=== PATIENT | male | born 1990 | race Two or more races ===

== ENCOUNTER 2017-11-26 15:02 | Inpatient (IN) | payer MEDICAID ==
[~2017-11-26] VITALS: Ht 182.9 cm; Wt 63.1 kg
[~2017-11-26 15:02] MED LIST: OFLO5DRO OP; PHEN-873 PO
[2017-11-26 15:47] LABS: BASOPHILS % (AUTO) 0.1 % (0-1); EOSINOPHILS # (AUTO) 0.2 X10'3 (0-0.9); EOSINOPHILS % (AUTO) 1.8 % (0-6); HEMATOCRIT 44.5 % (42.0-52.0); HEMOGLOBIN 15.1 g/dl (14.0-17.9); LYMPHOCYTES # (AUTO) 1.8 X10'3 (1.1-4.8); LYMPHOCYTES % (AUTO) 15.4 % (21-51); MEAN CORPUSCULAR HEMOGLOBIN 30.6 PG (27.0-31.0); MEAN CORPUSCULAR HGB CONC 33.8 % (33.0-36.5); MEAN CORPUSCULAR VOLUME 90.6 FL (78-98); MONOCYTES # (AUTO) 1.1 X10'3 (0-0.9); MONOCYTES % (AUTO) 9.2 % (2-12); NEUTROPHILS # (AUTO) 8.6 X10'3 (1.8-7.7); NEUTROPHILS % (AUTO) 73.5 % (42-75); PLATELET COUNT 190 X10'3 (140-440); RED BLOOD COUNT 4.91 X10'6 (4.70-6.10); RED CELL DISTRIBUTION WIDTH 13.2 % (11.5-14.5); WHITE BLOOD COUNT 11.8 X10'3 (4.5-11.0)
[2017-11-26 15:55] LABS: PROTHROMBIN TIME 10.1 SECONDS (9.0-12.0)
[2017-11-26 16:00] LABS: ALANINE AMINOTRANSFERASE 141 U/L (12-78); ALBUMIN 4.1 G/DL (3.4-5.0); ALBUMIN/GLOBULIN RATIO 1.2 (1.1-1.5); ALKALINE PHOSPHATASE 65 IU/L (46-116); ANION GAP 7 (8-16); ASPARTATE AMINO TRANSFERASE 53 U/L (10-37); BILIRUBIN,TOTAL 0.8 MG/DL (0.1-1.0); BLOOD UREA NITROGEN 17 MG/DL (7-18); BUN/CREATININE RATIO 16.3 (5.4-32.0); CALCIUM 8.9 MG/DL (8.5-10.1); CHLORIDE 102 MMOL/L (99-107); CREATININE 1.04 MG/DL (0.60-1.10); GLUCOSE 93 MG/DL (70-104); SODIUM 139 MMOL/L (135-145); TOTAL CARBON DIOXIDE 29.6 MMOL/L (24-32); TOTAL PROTEIN 7.6 G/DL (6.4-8.2); eGFR 86 ML/MIN
[2017-11-26 16:21] LABS: CLARITY,URINE CLEAR (Clear); COLOR,URINE YELLOW (Yellow); GLUCOSE, URINE NEGATIVE (Neg); KETONES,URINE NEGATIVE (Neg); LEUKOCYTE ESTERASE ,URINE NEGATIVE (Neg); NITRITES, URINE NEGATIVE (Neg); OCCULT BLOOD,URINE NEGATIVE (Neg); PH,URINE 5.5 (4.8-8.0); PROTEIN,URINE NEGATIVE (Neg); UROBILINOGEN,URINE 0.2 E.U/dL (0.2-1.0)
[2017-11-26 16:25] LABS: UA COLLECTION TYPE CLN CATCH MIDSTREAM
[2017-11-26] MEDS ORDERED: morphine 4 MG/ML inj SYRINge IV ONE (16:25)
[2017-11-26] MEDS ORDERED: ondansetron/PF 4mg/2ml inj IV ONE (16:25)
[2017-11-26] MEDS ORDERED: normal saline 1000ML IV soln IVB ONE ×2 (16:25)
[2017-11-26] MEDS ORDERED: iohexol 300mg/ml 100ml inj. ONE (16:57)
[2017-11-26] MEDS ORDERED: NO HOME MEDS (18:09)
[2017-11-26] MEDS ORDERED: ondansetron/PF 4mg/2ml inj IV PRN (20:10)
[2017-11-26] MEDS: ciprofloxacin lact 400MG/200ML 200 ML IV SCH (20:39)
[2017-11-26] MEDS: normal saline 1000ml 1,000 ML IV SCH (20:40)
[2017-11-26] MEDS: morphine 4 MG/ML inj SYRINge IV PRN (21:14)
[2017-11-26 21:25] VITALS: BP 107/66
[2017-11-26] MEDS ORDERED: metroNIDAZOLE-Flagyl 500mg/NS 100 ML IV SCH (22:00)
[2017-11-27] VITALS (22 sets, daily range): BP systolic 92–123; BP diastolic 49–70
[2017-11-27 05:14] LABS: BASOPHILS % (AUTO) 0.3 % (0-1); EOSINOPHILS # (AUTO) 0.2 X10'3 (0-0.9); EOSINOPHILS % (AUTO) 1.8 % (0-6); HEMATOCRIT 38.8 % (42.0-52.0); HEMOGLOBIN 13.5 g/dl (14.0-17.9); LYMPHOCYTES # (AUTO) 1.8 X10'3 (1.1-4.8); MEAN CORPUSCULAR HGB CONC 34.8 % (33.0-36.5); MEAN PLATELET VOLUME 8.1 FL (7.4-10.4); MONOCYTES % (AUTO) 10.7 % (2-12); NEUTROPHILS # (AUTO) 6.3 X10'3 (1.8-7.7); NEUTROPHILS % (AUTO) 68.2 % (42-75); PLATELET COUNT 157 X10'3 (140-440); RED BLOOD COUNT 4.36 X10'6 (4.70-6.10); RED CELL DISTRIBUTION WIDTH 12.9 % (11.5-14.5); WHITE BLOOD COUNT 9.3 X10'3 (4.5-11.0)
[2017-11-27] MEDS: normal saline 1000ml 1,000 ML IV SCH ×3 (06:06→16:08)
[2017-11-27] MEDS: metroNIDAZOLE-Flagyl 500mg/NS 100 ML IV SCH ×3 (07:22→23:58)
[2017-11-27] MEDS: ciprofloxacin lact 400MG/200ML 200 ML IV SCH ×2 (09:24→21:19)
[2017-11-27] MEDS: morphine 4 MG/ML inj SYRINge IV PRN ×3 (09:25→22:34)
[2017-11-27] MEDS ORDERED: ringers solution, lacted 1,000 ML IV SCH (12:26)
[2017-11-27] MEDS ORDERED: ondansetron/PF 4mg/2ml inj IV PRN (12:30)
[2017-11-27] MEDS ORDERED: proCHLORperazine 10 MG/2 ml inj IV PRN (12:30)
[2017-11-27] MEDS ORDERED: morphine 4 MG/ML inj SYRINge IV PRN ×2 (12:30)
[2017-11-27] MEDS ORDERED: meperidine/PF 50mg/ml syringe IV PRN ×3 (12:30)
[2017-11-27] MEDS ORDERED: BUPIVAcaine/PF 2.5 mg/ml (0.25%) 30ml vial ONE (12:35)
[2017-11-27] MEDS ORDERED: sevoflurane 250ml liquid IH ONE (13:05)
[2017-11-27] MEDS ORDERED: midazolam 2 mg/2 ml injection ONE (13:10)
[2017-11-27] MEDS ORDERED: fentaNYL/PF 50MCG/1 ML 2ML syringe ONE (13:10)
[2017-11-27] MEDS ORDERED: LIDOcaine 2% (20mg/ml) 5ml vial ONE (13:12)
[2017-11-27] MEDS ORDERED: propofol inj 20 ML IV ONE (13:12)
[2017-11-27] MEDS ORDERED: ondansetron/PF 4mg/2ml inj ONE (13:18)
[2017-11-27] MEDS ORDERED: ketorolac trometh. 30mg/ml inj. ONE (13:18)
[2017-11-27] MEDS ORDERED: dexamethasone sod phosphate 4mg/ml inj. ONE (13:23)
[2017-11-27] MEDS ORDERED: meperidine/PF 50mg/ml syringe ONE (13:33)
[2017-11-27] MEDS: HYDROcodone/acetaminophen 10/325mg tab PO PRN (19:05)
[2017-11-27] MEDS: phenazopyridine 100mg tablet PO SCH (21:19)
[2017-11-27] MEDS: lactobacillus rhamnosus 10,000 MMU CELLS/CAPSULE PO SCH (21:19)
[2017-11-28] MEDS: normal saline 1000ml 1,000 ML IV SCH (03:07)
[2017-11-28] MEDS: HYDROcodone/acetaminophen 10/325mg tab PO PRN ×2 (03:38→07:48)
[2017-11-28 04:00] VITALS: BP 112/61
[2017-11-28 06:00] LABS: BASOPHILS % (AUTO) 0 % (0-1); EOSINOPHILS % (AUTO) 0 % (0-6); HEMATOCRIT 38.3 % (42.0-52.0); HEMOGLOBIN 13.3 g/dl (14.0-17.9); LYMPHOCYTES # (AUTO) 0.8 X10'3 (1.1-4.8); LYMPHOCYTES % (AUTO) 7.5 % (21-51); MEAN CORPUSCULAR HEMOGLOBIN 31.4 PG (27.0-31.0); MEAN CORPUSCULAR HGB CONC 34.7 % (33.0-36.5); MEAN CORPUSCULAR VOLUME 90.6 FL (78-98); MEAN PLATELET VOLUME 8.2 FL (7.4-10.4); MONOCYTES # (AUTO) 0.9 X10'3 (0-0.9); MONOCYTES % (AUTO) 8.1 % (2-12); NEUTROPHILS # (AUTO) 9.2 X10'3 (1.8-7.7); NEUTROPHILS % (AUTO) 84.4 % (42-75); PLATELET COUNT 169 X10'3 (140-440); RED BLOOD COUNT 4.23 X10'6 (4.70-6.10); RED CELL DISTRIBUTION WIDTH 12.6 % (11.5-14.5); WHITE BLOOD COUNT 10.9 X10'3 (4.5-11.0)
[2017-11-28 07:00] VITALS: BP 112/60
[2017-11-28] MEDS: phenazopyridine 100mg tablet PO SCH ×2 (07:46→13:00)
[2017-11-28] MEDS: ciprofloxacin lact 400MG/200ML 200 ML IV SCH (07:49)
[2017-11-28] MEDS: lactobacillus rhamnosus 10,000 MMU CELLS/CAPSULE PO SCH (07:51)
[2017-11-28] MEDS: metroNIDAZOLE-Flagyl 500mg/NS 100 ML IV SCH (09:38)
[2017-11-28 11:00] VITALS: BP 111/53
[2017-11-28] MEDS ORDERED: ketorolac trometh. 30mg/ml inj. IV PRN (11:45)
[2017-11-28] MEDS ORDERED: METR500T4 PO (12:08)
[2017-11-28] MEDS ORDERED: TRAM50TA2 PO (12:08)
[2017-11-28] MEDS ORDERED: CIPR-230 PO (12:27)
== END 2017-11-28 13:20 | disposition home or self-care (01) | DRG 225 ==
LOC: ER 15:03 → ED HOLD 20:06 → EDBEDREQ 20:54 → SUR 3N 21:25
PROVIDERS: ADMIT Internal Medicine; ATTEND Internal Medicine
PROC: 0DTJ4ZZ Resection of Appendix, Percutaneous Endoscopic Approach (ICD-10-PCS; principal; 2017-11-27 13:05)
DX: K35.80 Unspecified acute appendicitis (principal); Z68.1 Body mass index [BMI] 19.9 or less, adult; F15.90 Other stimulant use, unspecified, uncomplicated; G89.29 Other chronic pain; M54.9 Dorsalgia, unspecified; Z56.0 Unemployment, unspecified; Z88.0 Allergy status to penicillin; Z87.891 Personal history of nicotine dependence; Z79.899 Other long term (current) drug therapy
CPT/HCPCS: 36415; 74177; 80053; 81003; 85025; 85610; 87070; 96361; 96374; 96375; 99285; A4315; A6251; A7000; J0744; J1100; J1885; J2001; J2175; J2250; J2270; J2405; J2704; J3010; J3490; J7030; J7120; Q9967

== ENCOUNTER 2017-12-16 18:12 | Emergency (ER) | payer MEDICAID ==
[~2017-12-16] VITALS: Ht 182.9 cm; Wt 57.8 kg
[~2017-12-16 18:12] MED LIST changes: +CIPR-230 PO; -OFLO5DRO OP; -PHEN-873 PO
[2017-12-16 20:27] VITALS: BP 119/60
[2017-12-16] MEDS ORDERED: SULF1TAB49 PO (20:48)
== END 2017-12-16 21:17 | disposition home or self-care (01) ==
LOC: ER 18:12
DX: L02.211 Cutaneous abscess of abdominal wall (principal); G89.29 Other chronic pain; F15.10 Other stimulant abuse, uncomplicated; Z90.49 Acquired absence of other specified parts of digestive tract; Z88.0 Allergy status to penicillin; Z88.6 Allergy status to analgesic agent; Z56.0 Unemployment, unspecified
CPT/HCPCS: 99283

== ENCOUNTER 2017-12-22 11:52 | Emergency (ER) | payer MEDICAID ==
[~2017-12-22] VITALS: Ht 182.9 cm; Wt 69.0 kg
[~2017-12-22 11:52] MED LIST changes: +SULF1TAB49 PO
[2017-12-22] MEDS ORDERED: DOXY100T2 PO (15:25)
[2017-12-22 15:53] VITALS: BP 109/66
== END 2017-12-22 16:30 | disposition home or self-care (01) ==
LOC: ER 11:53
DX: T81.4XXA Infection following a procedure, initial encounter (principal); G89.29 Other chronic pain; F15.10 Other stimulant abuse, uncomplicated; Z88.0 Allergy status to penicillin; Z88.6 Allergy status to analgesic agent; Z56.0 Unemployment, unspecified
CPT/HCPCS: 87070; 87077; 87186; 99284

== ENCOUNTER 2017-12-24 13:52 | Emergency (ER) | payer MEDICAID ==
[~2017-12-24] VITALS: Ht 182.9 cm; Wt 69.6 kg
[~2017-12-24 13:52] MED LIST changes: +DOXY100T2 PO
[2017-12-24 14:14] VITALS: BP 126/67
== END 2017-12-24 14:27 | disposition home or self-care (01) ==
LOC: ER 13:52
DX: Z00.8 Encounter for other general examination (principal); G89.29 Other chronic pain; F15.10 Other stimulant abuse, uncomplicated; Z88.0 Allergy status to penicillin; Z88.6 Allergy status to analgesic agent; Z90.49 Acquired absence of other specified parts of digestive tract; Z56.0 Unemployment, unspecified
CPT/HCPCS: 99281

== ENCOUNTER 2018-10-21 19:03 | Emergency (ER) | payer MEDICAID ==
[~2018-10-21 19:03] MED LIST changes: -SULF1TAB49 PO
== END 2018-10-21 19:22 | disposition left against medical advice (07) ==
LOC: ER 19:04
DX: R10.9 Unspecified abdominal pain (principal); Z53.21 Procedure and treatment not carried out due to patient leaving prior to being seen by health care provider

== ENCOUNTER 2020-10-06 14:41 | Emergency (ER) | payer MEDICAID ==
[~2020-10-06] VITALS: Ht 182.9 cm; Wt 80.0 kg
[2020-10-06 15:56] VITALS: BP 126/89
== END 2020-10-06 15:59 | disposition home or self-care (01) ==
LOC: ER 14:42
DX: R07.89 Other chest pain (principal); F41.0 Panic disorder [episodic paroxysmal anxiety]; G89.29 Other chronic pain; F15.90 Other stimulant use, unspecified, uncomplicated; Z90.89 Acquired absence of other organs; Z72.89 Other problems related to lifestyle; Z56.0 Unemployment, unspecified; Z88.0 Allergy status to penicillin; Z88.6 Allergy status to analgesic agent; Z79.2 Long term (current) use of antibiotics
CPT/HCPCS: 93005; 99283

== ENCOUNTER 2021-07-09 12:04 | Emergency (ER) | payer MEDICAID ==
[~2021-07-09] VITALS: Ht 182.9 cm; Wt 84.1 kg
[~2021-07-09 12:04] MED LIST changes: +CIPR-202 PO; -CIPR-230 PO
[2021-07-09 12:15] VITALS: BP 136/69
[2021-07-09 12:40] LABS: BASOPHILS % (AUTO) 0.6 % (0-1); EOSINOPHILS # (AUTO) 0.2 X10'3 (0-0.9); EOSINOPHILS % (AUTO) 2.9 % (0-6); HEMATOCRIT 44.5 % (42.0-52.0); HEMOGLOBIN 15.6 g/dl (14.0-17.9); LYMPHOCYTES # (AUTO) 1.6 X10'3 (1.1-4.8); LYMPHOCYTES % (AUTO) 23.8 % (21-51); MEAN CORPUSCULAR HEMOGLOBIN 31.5 PG (27.0-31.0); MEAN PLATELET VOLUME 7.8 FL (7.4-10.4); MONOCYTES # (AUTO) 0.7 X10'3 (0-0.9); MONOCYTES % (AUTO) 10.8 % (2-12); NEUTROPHILS # (AUTO) 4.1 X10'3 (1.8-7.7); NEUTROPHILS % (AUTO) 61.9 % (42-75); PLATELET COUNT 219 X10'3 (140-440); RED BLOOD COUNT 4.94 X10'6 (4.70-6.10); RED CELL DISTRIBUTION WIDTH 13.1 % (11.5-14.5); WHITE BLOOD COUNT 6.6 X10'3 (4.5-11.0)
[2021-07-09 12:53] LABS: ALANINE AMINOTRANSFERASE 22 U/L (12-78); ALBUMIN 3.7 G/DL (3.4-5.0); ALKALINE PHOSPHATASE 72 IU/L (46-116); ANION GAP 8 (8-16); ASPARTATE AMINO TRANSFERASE 25 U/L (10-37); BILIRUBIN,TOTAL 0.4 MG/DL (0.1-1.0); BLOOD UREA NITROGEN 21 MG/DL (7-18); BUN/CREATININE RATIO 19.3 (5.4-32.0); CALCIUM 8.7 MG/DL (8.5-10.1); CHLORIDE 104 MMOL/L (99-107); CREATININE 1.09 MG/DL (0.60-1.10); GLUCOSE 90 MG/DL (70-104); POTASSIUM 4.1 MMOL/L (3.5-5.1); SODIUM 140 MMOL/L (135-145); TOTAL PROTEIN 7.3 G/DL (6.4-8.2); eGFR 79 ML/MIN
== END 2021-07-09 18:20 | disposition home or self-care (01) ==
LOC: ER 12:04
DX: R07.9 Chest pain, unspecified (principal); F15.10 Other stimulant abuse, uncomplicated; G89.29 Other chronic pain; Z56.0 Unemployment, unspecified; Z88.0 Allergy status to penicillin; Z88.6 Allergy status to analgesic agent
CPT/HCPCS: 36415; 71045; 80053; 83880; 84484; 85025; 93005; 99285

== ENCOUNTER 2023-12-05 08:32 | Emergency (ER) | payer MEDICAID ==
[~2023-12-05] VITALS: Ht 182.9 cm; Wt 95.3 kg
[2023-12-05 08:34] VITALS: BP 132/88; PULSE 80; RESP 16; TEMP 98.2; O2SAT 99
== END 2023-12-05 12:31 | disposition home or self-care (01) ==
LOC: ER 08:33
DX: M25.532 Pain in left wrist (principal); F15.90 Other stimulant use, unspecified, uncomplicated; Z90.49 Acquired absence of other specified parts of digestive tract; Z79.899 Other long term (current) drug therapy; Z72.89 Other problems related to lifestyle; Z56.0 Unemployment, unspecified
CPT/HCPCS: 29125; 73110; 99283